=== PATIENT | female | born 1950 | race Caucasian/White ===

== ENCOUNTER 2020-09-24 18:23 | Emergency (ER) | payer OTHER ==
[~2020-09-24] VITALS: Ht 167.6 cm; Wt 95.5 kg
[2020-09-24 18:27] VITALS: TEMP 98.4
[2020-09-24] MEDS ORDERED: WELLBUTRIN SR150 M1 PO (23:18)
[2020-09-24] MEDS ORDERED: PROZAC 10MG10 MG PO (23:19)
[2020-09-24 23:28] VITALS: BP 95/52; PULSE 92
== END 2020-09-24 23:45 | disposition short-term general hospital (02) ==
LOC: COL.ER 18:23
DX: S22.41XA Multiple fractures of ribs, right side, initial encounter for closed fracture (principal); S32.501A Unspecified fracture of right pubis, initial encounter for closed fracture; S32.10XA Unspecified fracture of sacrum, initial encounter for closed fracture; S42.011A Anterior displaced fracture of sternal end of right clavicle, initial encounter for closed fracture; S27.0XXA Traumatic pneumothorax, initial encounter; F41.9 Anxiety disorder, unspecified; F32.9 Major depressive disorder, single episode, unspecified; Z88.2 Allergy status to sulfonamides; W10.8XXA Fall (on) (from) other stairs and steps, initial encounter; Y92.009 Unspecified place in unspecified non-institutional (private) residence as the place of occurrence of the external cause
CPT/HCPCS: J3010